=== PATIENT | male | born 1995 | race African-American/Black ===

== ENCOUNTER 2023-02-21 09:13 | Emergency (ER) | payer MEDICAID ==
[~2023-02-21] VITALS: Ht 172.7 cm; Wt 70.0 kg
[2023-02-21 09:18] VITALS: BP 142/82; O2SAT 100
[2023-02-21] MEDS ORDERED: PANTOPRAZOLE SODIUM 40 MG/VIAL IV STA (09:24)
[2023-02-21] MEDS ORDERED: ONDANSETRON HCL 4MG/2ML INJ IV STA (09:24)
[2023-02-21] MEDS ORDERED: MAGNESIUM/ALUMINUM HYDROXIDE/SIMETHICONE 30ML UDC PO ONE (09:30)
[2023-02-21 10:13] LABS: DIFFERENTIAL COMMENT 0; EOSINOPHILS % 1.1 % (0.0-5.0); HEMATOCRIT. 44.9 % (42.0-52.0); HEMOGLOBIN. 14.9 g/dL (14.0-18.0); MEAN CORPUSCULAR HEMOGLOBIN 31.9 pg (28.0-32.0); MEAN CORPUSCULAR HGB CONC 33.2 g/dL (31.0-37.0); MEAN CORPUSCULAR VOLUME 95.9 fL (80.0-94.0); MEAN PLATELET VOLUME 10.7 fl (7.4-10.4); MONOCYTES % 7.7 % (2.0-8.0); NEUTROPHILS % 57.2 % (40.0-76.0); PLATELET 162 x1000/uL (130-400); RED BLOOD CELL COUNT 4.68 mill/uL (4.7-6.1); WHITE BLOOD COUNT 3.9 x1000/uL (4.5-11.0)
[2023-02-21 10:19] LABS: CHLORIDE 107 mEq/L (98-107); INDEX HEMOLYSI 1 (1-3); INDEX ICTERIC 1 (1-4); INDEX LIPEMIC 1 (1-3); POTASSIUM 3.3 mEq/L (3.5-5.1); SODIUM 137 mEq/L (136-145)
[2023-02-21 10:28] LABS: ALANINE AMINOTRANSFERASE 24 IU/L (13-61); ALBUMIN 5.2 g/dL (3.4-5.0); ASPARTATE AMINOTRANSFERASE 27 IU/L (15-37); BILIRUBIN TOTAL 1.2 mg/dL (0.1-1.0); CALCIUM 9.9 mg/dL (8.5-10.1); CARBON DIOXIDE 20 mEq/L (21-32); CREATININE 0.9 mg/dL (0.6-1.3); GLUCOSE 88 mg/dL (70-105); PROTEIN TOTAL 8.7 g/dL (6.0-8.3); UREA NITROGEN BLOOD 7 mg/dL (7-21)
[2023-02-21] MEDS ORDERED: DIATR MEGLU/DIATRIZOATE SOLN 30ML ONE (10:34)
[2023-02-21 10:41] LABS: INR 1.2; PROTHROMBIN TIME 12.4 sec (9.6-11.0)
[2023-02-21] MEDS ORDERED: POLY17PO3 MT (12:09)
[2023-02-21] MEDS ORDERED: ONDA4TAB11 PO (12:09)
[2023-02-21] MEDS ORDERED: ESOM40CA MT (12:09)
[2023-02-21 12:23] VITALS: PULSE 86; RESP 16; TEMP 98
[2023-02-21] MEDS ORDERED: IOHEXOL-300 100 ML BOTTLE ONE (13:12)
== END 2023-02-21 12:24 | disposition home or self-care (01) ==
LOC: ER 09:13
DX: R10.13 Epigastric pain (principal); J45.909 Unspecified asthma, uncomplicated
CPT/HCPCS: 80053; 83690; 85025; 85610; 36415; 74177; 96374; 96375; 99285; Q9967; J2405; C9113; Z7610; Q9963